=== PATIENT | male | born 1955 | race Caucasian/White ===

== ENCOUNTER 2020-12-04 17:40 | Inpatient (IN) | payer MEDICARE, BC ==
[2020-12-04] MEDS ORDERED: Dexamethasone 10 MG/ML VIAL ONE (18:10)
[2020-12-04 18:38] LABS: #Lymphocytes 0.3 thou/uL (1.20-3.40); #Monocytes 0.4 thou/uL (0.11-0.59); %Lymphocytes 5.8 % (21.0-51.0); %Monocytes 6.9 % (0.0-10.0); %Neutrophils 87.3 % (42.0-75.0); Hemoglobin 15.4 g/dL (14.0-18.0); Mean Corpuscular HGB CONC 34.9 g/dL (32.0-36.0); Mean Corpuscular Hemoglobin 31.3 pg (27.0-31.0); Mean Corpuscular Volume 89.8 fL (78.0-98.0); Platelet Count 109 thou/uL (130-400); RBC Distribution Width 12.3 % (11.5-14.5); Red Blood Cell (RBC) Count 4.91 mill/uL (4.70-6.10); White Blood Cell (WBC) Count 5.8 thou/uL (4.8-10.8)
[2020-12-04 18:52] LABS: Large Platelets SLIGHT; MDiff Complete? YES; Platelet Morphology Comment Appears Decreased; RBC Morphology Normal
[2020-12-04 18:58] LABS: ALT (SGPT) 66 U/L (8-55); AST (SGOT) 54 U/L (5-34); Alkaline Phosphatase 82 U/L (40-110); Anion Gap 20 mmol/L (10-20); BUN (Urea Nitrogen) 26 mg/dL (8.4-25.7); Calc. Creatinine Clearance 0 mL/min (70-130); Calcium 8.8 mg/dL (7.8-10.44); Carbon Dioxide 19 mmol/L (23-31); Chloride 100 mmol/L (98-107); Globulin 3.5 g/dL (2.4-3.5); Glucose 265 mg/dL (80-115); Protein, Total 7.5 g/dL (5.8-8.1); Sodium 135 mmol/L (136-145)
[2020-12-04] MEDS ORDERED: Acetaminophen 325 MG TAB PO PRN (20:08)
[2020-12-04] MEDS ORDERED: Ondansetron PF 4 MG/2 ML Vial IVP PRN (20:08)
[2020-12-04] MEDS ORDERED: Pharmacy to Dose REMDESIVIR IVPB PRN (20:11)
[2020-12-04] MEDS ORDERED: Dextrose 50% Abboject 50 ML SYRINGE SLOW IVP PRN (20:15)
[2020-12-04] MEDS ORDERED: Dextrose 5% in Water 1,000 ML IV PRN (20:15)
[2020-12-04] MEDS ORDERED: Sodium Chloride 0.9% 500 ML IV SCH (21:00)
[2020-12-04] MEDS ORDERED: REMDESIVIR (EUA) 200 MG in Sodium Chloride 0.9% 250 ML 210 ML IV SCH (22:00)
[2020-12-04] MEDS: Enoxaparin Sodium 40 MG/0.4 ML SYRINGE SC SCH (22:48)
[2020-12-04] MEDS: Famotidine 20 MG TAB PO SCH (22:49)
[2020-12-04] MEDS: Albuterol 200 PUFF (6.7GM INHALER) INH SCH (22:50)
[2020-12-04] MEDS: HumaLOG 300 UNITS/3 ML VIAL SC PRN (22:51)
[2020-12-04 23:15] VITALS: BMI 24.3
[2020-12-05] MEDS: Albuterol 200 PUFF (6.7GM INHALER) INH SCH ×7 (02:08→22:22)
[2020-12-05] MEDS: HumaLOG 300 UNITS/3 ML VIAL SC PRN ×3 (05:32→21:16)
[2020-12-05 07:25] LABS: #Lymphocytes 0.5 thou/uL (1.20-3.40); #Monocytes 0.3 thou/uL (0.11-0.59); #Neutrophils 4.9 thou/uL (1.40-6.50); %Eosinophils 0.1 % (0.0-10.0); %Lymphocytes 8.2 % (21.0-51.0); %Monocytes 5.1 % (0.0-10.0); %Neutrophils 86.6 % (42.0-75.0); Hemoglobin 14.7 g/dL (14.0-18.0); Mean Corpuscular HGB CONC 35.1 g/dL (32.0-36.0); Mean Corpuscular Hemoglobin 31.6 pg (27.0-31.0); Mean Corpuscular Volume 90.2 fL (78.0-98.0); Platelet Count 115 thou/uL (130-400); RBC Distribution Width 12.1 % (11.5-14.5); Red Blood Cell (RBC) Count 4.64 mill/uL (4.70-6.10); White Blood Cell (WBC) Count 5.6 thou/uL (4.8-10.8)
[2020-12-05 07:50] LABS: ALT (SGPT) 58 U/L (8-55); AST (SGOT) 42 U/L (5-34); Albumin 3.6 g/dL (3.4-4.8); Alkaline Phosphatase 74 U/L (40-110); Anion Gap 20 mmol/L (10-20); BUN (Urea Nitrogen) 26 mg/dL (8.4-25.7); Bilirubin, Direct 0.3 mg/dL (0.1-0.3); Bilirubin, Total 0.7 mg/dL (0.2-1.2); CRP (Inflammatory) 3.24 mg/dL (= or < 0.5); Calc. Creatinine Clearance 94 mL/min (70-130); Calcium 8.7 mg/dL (7.8-10.44); Carbon Dioxide 17 mmol/L (23-31); Chloride 106 mmol/L (98-107); Glucose 222 mg/dL (80-115); Potassium 3.7 mmol/L (3.5-5.1); Protein, Total 6.8 g/dL (5.8-8.1); Sodium 139 mmol/L (136-145)
[2020-12-05] MEDS: Famotidine 20 MG TAB PO SCH ×2 (09:37→20:39)
[2020-12-05] MEDS: Zinc Sulfate 220 MG CAP PO SCH (09:38)
[2020-12-05] MEDS: Dexamethasone 4 mg/ml Vial SLOW IVP SCH (09:38)
[2020-12-05] MEDS: Ascorbic Acid 500 mg Chewable Tablet PO SCH (09:38)
[2020-12-05] MEDS ORDERED: Famotidine 20 MG TAB PO PRN (09:51)
[2020-12-05] MEDS ORDERED: Amlodipine 5 MG TAB PO SCH (10:00)
[2020-12-05] MEDS ORDERED: metFORMIN 500 MG TAB PO SCH (10:00)
[2020-12-05] MEDS: metFORMIN 500 MG TAB PO SCH (20:39)
[2020-12-05] MEDS: Enoxaparin Sodium 40 MG/0.4 ML SYRINGE SC SCH (21:04)
[2020-12-05] MEDS: REMDESIVIR (EUA) 100 MG in Sodium Chloride 0.9% 250 ML 230 ML IV SCH (21:57)
[2020-12-06] MEDS: Albuterol 200 PUFF (6.7GM INHALER) INH SCH ×6 (02:17→22:07)
[2020-12-06 06:46] LABS: #Basophils 0.1 thou/uL (0.0-0.2); #Lymphocytes 0.4 thou/uL (1.20-3.40); #Monocytes 0.5 thou/uL (0.11-0.59); #Neutrophils 5.8 thou/uL (1.40-6.50); %Basophils 0.9 % (0.0-1.0); %Eosinophils 0.1 % (0.0-10.0); %Lymphocytes 5.1 % (21.0-51.0); %Monocytes 7.6 % (0.0-10.0); %Neutrophils 86.2 % (42.0-75.0); Hemoglobin 13.6 g/dL (14.0-18.0); Mean Corpuscular HGB CONC 35.9 g/dL (32.0-36.0); Mean Corpuscular Hemoglobin 32.5 pg (27.0-31.0); Mean Corpuscular Volume 90.5 fL (78.0-98.0); Mean Platelet Volume 9.1 fL (7.4-10.4); Platelet Count 114 thou/uL (130-400); RBC Distribution Width 12.1 % (11.5-14.5); Red Blood Cell (RBC) Count 4.19 mill/uL (4.70-6.10); White Blood Cell (WBC) Count 6.8 thou/uL (4.8-10.8)
[2020-12-06 06:58] LABS: Anion Gap 15 mmol/L (10-20); BUN (Urea Nitrogen) 25 mg/dL (8.4-25.7); Calc. Creatinine Clearance 106 mL/min (70-130); Calcium 8.6 mg/dL (7.8-10.44); Carbon Dioxide 22 mmol/L (23-31); Chloride 109 mmol/L (98-107); Glucose 152 mg/dL (80-115); Potassium 4.4 mmol/L (3.5-5.1); Sodium 142 mmol/L (136-145)
[2020-12-06 07:01] LABS: ALT (SGPT) 51 U/L (8-55); AST (SGOT) 38 U/L (5-34); Albumin 3.3 g/dL (3.4-4.8); Alkaline Phosphatase 68 U/L (40-110); Bilirubin, Direct 0.4 mg/dL (0.1-0.3); Bilirubin, Total 0.7 mg/dL (0.2-1.2); Protein, Total 6.2 g/dL (5.8-8.1)
[2020-12-06] MEDS: Ascorbic Acid 500 mg Chewable Tablet PO SCH (07:57)
[2020-12-06] MEDS: Famotidine 20 MG TAB PO SCH ×2 (07:57→21:25)
[2020-12-06] MEDS: Multivit, Therapeutic 1 TAB PO SCH (07:58)
[2020-12-06] MEDS: Atorvastatin Calcium 40 MG TAB PO SCH (07:58)
[2020-12-06] MEDS: Aspirin 81 mg Enteric Coated Tablet PO SCH (07:58)
[2020-12-06] MEDS: Amlodipine 5 MG TAB PO SCH (07:58)
[2020-12-06] MEDS: Zinc Sulfate 220 MG CAP PO SCH (07:58)
[2020-12-06] MEDS: Dexamethasone 4 mg/ml Vial SLOW IVP SCH (07:59)
[2020-12-06] MEDS: metFORMIN 500 MG TAB PO SCH ×2 (07:59→21:25)
[2020-12-06] MEDS ORDERED: Montelukast Sodium 10 mg Tablet PO SCH (09:00)
[2020-12-06] MEDS: HumaLOG 300 UNITS/3 ML VIAL SC PRN (16:30)
[2020-12-06] MEDS: Enoxaparin Sodium 40 MG/0.4 ML SYRINGE SC SCH (21:25)
[2020-12-06] MEDS: Montelukast Sodium 10 mg Tablet PO SCH (21:25)
[2020-12-06] MEDS: REMDESIVIR (EUA) 100 MG in Sodium Chloride 0.9% 250 ML 230 ML IV SCH (21:26)
[2020-12-07 06:49] LABS: #Lymphocytes 0.5 thou/uL (1.20-3.40); #Monocytes 0.2 thou/uL (0.11-0.59); #Neutrophils 4.6 thou/uL (1.40-6.50); %Basophils 0.4 % (0.0-1.0); %Lymphocytes 8.8 % (21.0-51.0); %Monocytes 4.5 % (0.0-10.0); %Neutrophils 86.2 % (42.0-75.0); Hemoglobin 13.4 g/dL (14.0-18.0); Mean Corpuscular HGB CONC 35.3 g/dL (32.0-36.0); Mean Corpuscular Volume 90.7 fL (78.0-98.0); Mean Platelet Volume 9.3 fL (7.4-10.4); Platelet Count 119 thou/uL (130-400); RBC Distribution Width 12.1 % (11.5-14.5); Red Blood Cell (RBC) Count 4.18 mill/uL (4.70-6.10); White Blood Cell (WBC) Count 5.4 thou/uL (4.8-10.8)
[2020-12-07] MEDS: Albuterol 200 PUFF (6.7GM INHALER) INH SCH ×6 (06:51→22:30)
[2020-12-07 07:05] LABS: Anion Gap 15 mmol/L (10-20); BUN (Urea Nitrogen) 23 mg/dL (8.4-25.7); Calc. Creatinine Clearance 111 mL/min (70-130); Calcium 8.4 mg/dL (7.8-10.44); Carbon Dioxide 24 mmol/L (23-31); Chloride 109 mmol/L (98-107); Glucose 112 mg/dL (80-115); Potassium 4.6 mmol/L (3.5-5.1); Sodium 143 mmol/L (136-145)
[2020-12-07 07:09] LABS: ALT (SGPT) 45 U/L (8-55); AST (SGOT) 27 U/L (5-34); Albumin 3.2 g/dL (3.4-4.8); Alkaline Phosphatase 71 U/L (40-110); Bilirubin, Direct 0.4 mg/dL (0.1-0.3)
[2020-12-07] MEDS: Ascorbic Acid 500 mg Chewable Tablet PO SCH (07:43)
[2020-12-07] MEDS: Multivit, Therapeutic 1 TAB PO SCH (07:44)
[2020-12-07] MEDS: Aspirin 81 mg Enteric Coated Tablet PO SCH (07:44)
[2020-12-07] MEDS: Dexamethasone 4 mg/ml Vial SLOW IVP SCH (07:44)
[2020-12-07] MEDS: Atorvastatin Calcium 40 MG TAB PO SCH (07:44)
[2020-12-07] MEDS: Zinc Sulfate 220 MG CAP PO SCH (07:44)
[2020-12-07] MEDS: Amlodipine 5 MG TAB PO SCH (07:44)
[2020-12-07] MEDS: Famotidine 20 MG TAB PO SCH ×2 (07:44→20:55)
[2020-12-07] MEDS: metFORMIN 500 MG TAB PO SCH ×2 (07:44→20:55)
[2020-12-07] MEDS: HumaLOG 300 UNITS/3 ML VIAL SC PRN ×2 (17:07→20:56)
[2020-12-07] MEDS: Montelukast Sodium 10 mg Tablet PO SCH (20:55)
[2020-12-07] MEDS: Enoxaparin Sodium 40 MG/0.4 ML SYRINGE SC SCH (20:55)
[2020-12-07] MEDS: REMDESIVIR (EUA) 100 MG in Sodium Chloride 0.9% 250 ML 230 ML IV SCH (20:58)
[2020-12-08] MEDS: Albuterol 200 PUFF (6.7GM INHALER) INH SCH ×6 (01:58→21:47)
[2020-12-08] MEDS: Ascorbic Acid 500 mg Chewable Tablet PO SCH (08:30)
[2020-12-08] MEDS: Zinc Sulfate 220 MG CAP PO SCH (08:30)
[2020-12-08] MEDS: Famotidine 20 MG TAB PO SCH ×2 (08:30→21:47)
[2020-12-08] MEDS: Atorvastatin Calcium 40 MG TAB PO SCH (08:30)
[2020-12-08] MEDS: Aspirin 81 mg Enteric Coated Tablet PO SCH (08:30)
[2020-12-08] MEDS: Amlodipine 5 MG TAB PO SCH (08:31)
[2020-12-08] MEDS: Dexamethasone 4 mg/ml Vial SLOW IVP SCH (08:31)
[2020-12-08] MEDS: metFORMIN 500 MG TAB PO SCH ×2 (08:31→21:47)
[2020-12-08] MEDS: Multivit, Therapeutic 1 TAB PO SCH (08:31)
[2020-12-08 09:09] LABS: ALT (SGPT) 41 U/L (8-55); AST (SGOT) 24 U/L (5-34); Albumin 3.2 g/dL (3.4-4.8); Alkaline Phosphatase 79 U/L (40-110); Bilirubin, Direct 0.5 mg/dL (0.1-0.3); Bilirubin, Total 1.1 mg/dL (0.2-1.2); CRP (Inflammatory) 4.07 mg/dL (= or < 0.5); Protein, Total 6.3 g/dL (5.8-8.1)
[2020-12-08] MEDS ORDERED: Lantus 1000 UNITS/10 ML VIAL SC SCH (16:00)
[2020-12-08] MEDS: Montelukast Sodium 10 mg Tablet PO SCH (21:47)
[2020-12-08] MEDS: Enoxaparin Sodium 40 MG/0.4 ML SYRINGE SC SCH (21:47)
[2020-12-08] MEDS: HumaLOG 300 UNITS/3 ML VIAL SC PRN (21:48)
[2020-12-08] MEDS: REMDESIVIR (EUA) 100 MG in Sodium Chloride 0.9% 250 ML 230 ML IV SCH (21:59)
[2020-12-09] MEDS: Albuterol 200 PUFF (6.7GM INHALER) INH SCH ×3 (02:17→10:21)
[2020-12-09 06:41] LABS: ALT (SGPT) 41 U/L (8-55); AST (SGOT) 20 U/L (5-34); Albumin 3.2 g/dL (3.4-4.8); Alkaline Phosphatase 82 U/L (40-110); Bilirubin, Direct 0.5 mg/dL (0.1-0.3); Bilirubin, Total 1.2 mg/dL (0.2-1.2); Protein, Total 6.3 g/dL (5.8-8.1)
[2020-12-09] MEDS: Ascorbic Acid 500 mg Chewable Tablet PO SCH (08:16)
[2020-12-09] MEDS: Aspirin 81 mg Enteric Coated Tablet PO SCH (08:16)
[2020-12-09] MEDS: Famotidine 20 MG TAB PO SCH (08:17)
[2020-12-09] MEDS: Zinc Sulfate 220 MG CAP PO SCH (08:17)
[2020-12-09] MEDS: Amlodipine 5 MG TAB PO SCH (08:17)
[2020-12-09] MEDS: Multivit, Therapeutic 1 TAB PO SCH (08:17)
[2020-12-09] MEDS: Dexamethasone 4 mg/ml Vial SLOW IVP SCH (08:17)
[2020-12-09] MEDS: metFORMIN 500 MG TAB PO SCH (08:17)
[2020-12-09] MEDS: Atorvastatin Calcium 40 MG TAB PO SCH (08:17)
[2020-12-09] MEDS ORDERED: Lantus 1000 UNITS/10 ML VIAL SC SCH (09:00)
[2020-12-09 16:33] VITALS: BP 125/72; TEMP 97.8
== END 2020-12-09 14:06 | disposition home or self-care (01) | DRG 177 ==
LOC: ERS 17:40 → T4-A 19:38
PROVIDERS: ADMIT Internal Medicine; ATTEND Internal Medicine
PROC: XW033E5 Introduction of Remdesivir Anti-infective into Peripheral Vein, Percutaneous Approach, New Technology Group 5 (ICD-10-PCS; principal; 2020-12-04)
DX: U07.1 COVID-19 (principal); J12.82 Pneumonia due to coronavirus disease 2019; J96.01 Acute respiratory failure with hypoxia; N17.9 Acute kidney failure, unspecified; I10 Essential (primary) hypertension; I25.10 Atherosclerotic heart disease of native coronary artery without angina pectoris; D69.59 Other secondary thrombocytopenia; E11.9 Type 2 diabetes mellitus without complications; E88.09 Other disorders of plasma-protein metabolism, not elsewhere classified; Z79.82 Long term (current) use of aspirin; Z79.84 Long term (current) use of oral hypoglycemic drugs; Z95.5 Presence of coronary angioplasty implant and graft; Z87.891 Personal history of nicotine dependence
CPT/HCPCS: 36415; 36416; 71045; 80048; 80053; 80076; 82728; 85025; 85379; 86140; 93005; 94760; 96374; J1100; J1650; J1815; J7050